=== PATIENT | male | born 1945 | race Caucasian/White ===

== ENCOUNTER 2021-05-23 14:30 | Observation (INO) ==
[2021-05-23] MEDS ORDERED: Ondansetron 4 mg VIAL 2 MG/ML 2 ml VIAL IV ONE (14:59)
[2021-05-23 15:06] LABS: Hematocrit 60 % (42-52); Hemoglobin 19.8 g/dL (14.0-18.0); Mean Corpuscular HGB Conc 33 g/dL (31-36); Mean Corpuscular Hemoglobin 31 pg (27-31); Mean Corpuscular Volume 94 fL (80-94); Mean Platelet Volume 8.9 fL (7.4-10.4); Platelet Count 158 10^3/uL (150-450); Red Blood Count 6.38 10^6 /uL (4.18-5.48); Red Cell Distribution Width 14 % (10-15); White Blood Count 16.8 10^3/uL (3.5-10.8)
[2021-05-23 15:15] LABS: Activated Partial Thrombo Time 35.3 seconds (26.0-38.0); INR 0.98 (0.86-1.15)
[2021-05-23] MEDS ORDERED: Lactated Ringers 1000 ml BAG 1,000 ML IV ONE ×2 (15:16→22:21)
[2021-05-23] MEDS ORDERED: methylPREDNISolone 125 mg 2 ML VIAL IV ONE (15:16)
[2021-05-23] MEDS ORDERED: Albuterol HFA INHALER 8 gm MDI INH ONE (15:16)
[2021-05-23 15:32] LABS: Troponin I 0.03 ng/mL (<0.03)
[2021-05-23 15:34] LABS: ALT 36 U/L (7-52); AST 22 U/L (13-39); Albumin 5.3 g/dL (3.2-5.2); Albumin/Globulin Ratio 1.4 (1-3); Alkaline Phosphatase 73 U/L (35-149); Blood Urea Nitrogen 20 mg/dL (6-24); C Reactive Protein 50.78 mg/L (<8.01); CO2 Carbon Dioxide 29 mmol/L (22-32); Calcium 11.1 mg/dL (8.6-10.3); Chloride 98 mmol/L (101-111); Globulin 3.7 g/dL (2-4); Glucose 183 mg/dL (70-100); Sodium 136 mmol/L (135-145); eGFR CKD-EPI 71.2 (>60)
[2021-05-23 15:38] LABS: ABS Basophils 0.1 10^3/ul (0-0.2); ABS Lymphocytes 0.6 10^3/ul (1.0-4.8); ABS Monocytes 0.5 10^3/ul (0-0.8); ABS Neutrophils 15.6 10^3/ul (1.5-7.7); Anion Gap 9 mmol/L (2-11); Lymphocyte % 3.5 %; Nucleated Red Blood Cells % 0.2; Potassium 5.8 mmol/L (3.5-5.0)
[2021-05-23] MEDS ORDERED: Iohexol 300 (CONTRAST) 10 ML SDV IV ONE (15:39)
[2021-05-23] MEDS ORDERED: CALCIUM GLUCONATE 1GM/50ML NS 1 GM/50 ML BAG IV ONE (15:43)
[2021-05-23] MEDS ORDERED: Dextrose 50% Syringe 50 ml 25 GM/50 ML SYRINGE IV PUSH ONE (15:43)
[2021-05-23] MEDS ORDERED: Furosemide 40 mg/4 ml IV VIAL IV ONE (15:44)
[2021-05-23] MEDS ORDERED: cefTRIAXone 1 gm/50 mL NS BAG 1 GM/50 ML BAG IV ONE (16:41)
[2021-05-23] MEDS ORDERED: Azithromycin 500 mg/250 ml NS 500 MG/250 ML BAG IVPB ONE (16:58)
[2021-05-23 17:47] LABS: Urine Appearance Clear; Urine Bilirubin Negative (Negative); Urine Blood 1+ (Negative); Urine Color Yellow; Urine Glucose 1+(50 mg/dL) (Negative); Urine Ketones Negative (Negative); Urine Nitrite Negative (Negative); Urine Protein 2+(100 mg/dL) (Negative); Urine Specific Gravity 1.009 (1.002-1.030); Urine Urobilinogen Negative (Negative)
[2021-05-23 17:52] LABS: Urine Bacteria Absent (Absent); Urine Red Blood Cell Trace(0-2/hpf) (Absent); Urine White Blood Cell Trace(0-5/hpf) (Absent)
[2021-05-23] MEDS ORDERED: NS 0.9% 1000 ml BAG 1,000 ML IV ONE (18:29)
[2021-05-23 20:51] LABS: ABS Lymphocytes 0.3 10^3/ul (1.0-4.8); ABS Monocytes 0.2 10^3/ul (0-0.8); ABS Neutrophils 13.8 10^3/ul (1.5-7.7); Hematocrit 52 % (42-52); Hemoglobin 17.3 g/dL (14.0-18.0); Lymphocyte % 2.2 %; Mean Corpuscular HGB Conc 33 g/dL (31-36); Mean Corpuscular Hemoglobin 31 pg (27-31); Mean Corpuscular Volume 93 fL (80-94); Mean Platelet Volume 9.6 fL (7.4-10.4); Nucleated Red Blood Cells % 0.1; Platelet Count 142 10^3/uL (150-450); Red Blood Count 5.63 10^6 /uL (4.18-5.48); Red Cell Distribution Width 14 % (10-15); White Blood Count 14.3 10^3/uL (3.5-10.8)
[2021-05-23 21:08] LABS: LDH 343 U/L (140-271)
[2021-05-23 21:10] LABS: Potassium 4.7 mmol/L (3.5-5.0)
[2021-05-23 21:15] LABS: Troponin I 0.03 ng/mL (<0.03)
[2021-05-23] MEDS ORDERED: Albuterol HFA INHALER 8 gm MDI INH PRN (22:22)
[2021-05-23] MEDS: Enoxaparin 40 MG/0.4 ML SYR SUBCUT SCH (22:45)
[2021-05-23 23:15] LABS: Lipase 20 U/L (11.0-82.0)
[2021-05-24] MEDS ORDERED: SPIRIVA Respimat (tiotropium) 2.5 mcg/inh Inhaler INH SCH (02:00)
[2021-05-24 07:07] LABS: ABS Lymphocytes 0.6 10^3/ul (1.0-4.8); ABS Monocytes 0.2 10^3/ul (0-0.8); ABS Neutrophils 12.1 10^3/ul (1.5-7.7); Hematocrit 56 % (42-52); Hemoglobin 18.3 g/dL (14.0-18.0); Lymphocyte % 4.8 %; Mean Corpuscular HGB Conc 33 g/dL (31-36); Mean Corpuscular Hemoglobin 31 pg (27-31); Mean Corpuscular Volume 95 fL (80-94); Mean Platelet Volume 9.5 fL (7.4-10.4); Nucleated Red Blood Cells % 0.1; Platelet Count 130 10^3/uL (150-450); Red Blood Count 5.87 10^6 /uL (4.18-5.48); Red Cell Distribution Width 14 % (10-15); White Blood Count 12.9 10^3/uL (3.5-10.8)
[2021-05-24 07:20] LABS: Calcium 10.1 mg/dL (8.6-10.3)
[2021-05-24 07:42] LABS: Potassium 5.3 mmol/L (3.5-5.0)
[2021-05-24] MEDS ORDERED: Iohexol 350 (CONTRAST) 500 ML MDV IV ONE (08:34)
[2021-05-24] MEDS: SPIRIVA Respimat (tiotropium) 2.5 mcg/inh Inhaler INH SCH (11:56)
[2021-05-24] MEDS ORDERED: cefTRIAXone 1 gm/50 mL NS BAG 1 GM/50 ML BAG IVPB SCH (17:00)
[2021-05-24] MEDS ORDERED: Albuterol/Ipratropium NEB.SOL (2.5/0.5 MG) 3 ML NEB.SOLN INH SCH (19:00)
[2021-05-24] MEDS: Levalbuterol HFA INHALER MDI INH SCH (20:30)
[2021-05-24] MEDS: Enoxaparin 40 MG/0.4 ML SYR SUBCUT SCH (20:30)
[2021-05-25 05:31] LABS: ABS Lymphocytes 0.9 10^3/ul (1.0-4.8); ABS Monocytes 0.8 10^3/ul (0-0.8); ABS Neutrophils 10.2 10^3/ul (1.5-7.7); Eosinophil % 0.1 %; Hematocrit 52 % (42-52); Hemoglobin 17.1 g/dL (14.0-18.0); Lymphocyte % 7.5 %; Mean Corpuscular HGB Conc 33 g/dL (31-36); Mean Corpuscular Hemoglobin 31 pg (27-31); Mean Corpuscular Volume 94 fL (80-94); Mean Platelet Volume 9.5 fL (7.4-10.4); Nucleated Red Blood Cells % 0.1; Platelet Count 131 10^3/uL (150-450); Red Blood Count 5.53 10^6 /uL (4.18-5.48); Red Cell Distribution Width 14 % (10-15)
[2021-05-25 05:46] LABS: Albumin 3.8 g/dL (3.2-5.2); Albumin/Globulin Ratio 1.5 (1-3); Calcium 9.9 mg/dL (8.6-10.3); Globulin 2.6 g/dL (2-4); Total Bilirubin 0.5 mg/dL (0.2-1.0); Total Protein 6.4 g/dL (6.4-8.9); eGFR CKD-EPI 89.9 (>60)
[2021-05-25] MEDS: SPIRIVA Respimat (tiotropium) 2.5 mcg/inh Inhaler INH SCH (08:33)
[2021-05-25] MEDS: Levalbuterol HFA INHALER MDI INH SCH ×3 (08:33→15:21)
[2021-05-25 14:42] VITALS: BP 137/66
[2021-05-25] MEDS ORDERED: Perflutren Lipid Microsphere 3 ML VIAL ONE (14:42)
== END 2021-05-25 17:35 | disposition home or self-care (01) ==
LOC: ED 14:30 → INTOOBSV 20:26 → SUATTDRO 20:26 → MED 20:26
PROVIDERS: ADMIT Internal Medicine; ATTEND Internal Medicine